=== PATIENT | female | born 1960 | race Caucasian/White ===

== ENCOUNTER 2021-04-15 15:43 | Emergency (ER) | payer MEDICARE, MEDICAID ==
[~2021-04-15] VITALS: Ht 157.5 cm; Wt 108.9 kg
[2021-04-15 17:15] VITALS: BP 160/86
[2021-04-15] MEDS ORDERED: HYDROcodone-ACET 5/325MG TAB PO ONE (17:15)
== END 2021-04-15 18:02 | disposition home or self-care (01) ==
LOC: ER 15:43 → EDBD 15:43 → ER 17:46
DX: S82.832A Other fracture of upper and lower end of left fibula, initial encounter for closed fracture (principal); E11.9 Type 2 diabetes mellitus without complications; V43.62XA Car passenger injured in collision with other type car in traffic accident, initial encounter; Y93.89 Activity, other specified; Y92.89 Other specified places as the place of occurrence of the external cause; Y99.8 Other external cause status
CPT/HCPCS: 73562